=== PATIENT | female | born 1955 | race Caucasian/White ===

== ENCOUNTER → 2016-08-31 | Outpatient (CLI) | payer BC ==
[~2016-08-31] MED LIST: DIVA500T59 PO; FLUO20CA35 PO; SITA1TAB27 PO
== END | disposition home or self-care (01) ==
LOC: C.PAPS 09:49
PROVIDERS: ATTEND Obstetrics & Gynecology
DX: Z01.419 Encounter for gynecological examination (general) (routine) without abnormal findings (principal)

== ENCOUNTER → 2017-04-21 | Outpatient (CLI) | payer BC ==
--- NOTE | 2017-04-21 13:56 | DIAGNOSTIC IMAGING REPORT ---
RIGHT FOOT MIN 3 VIEWS ROUTINE CLINICAL HISTORY: 62 years-old Female presenting with RIGHT FOOT PAIN, SWELLING Right. TECHNIQUE: Frontal, oblique, and lateral views of the right foot were obtained. COMPARISON: None. FINDINGS: No acute fracture or malalignment. Prominent bone spur at the inferior calcaneus. No other degenerative changes evident. Mild soft tissue swelling over the dorsum of the foot may be present. IMPRESSION: No acute osseous abnormality. Enthesophyte at the origin of the plantar fascia. Electronically signed by: Jeff Cesar M.D. 04/21/2017 1:54 PM Dictated Date/Time: 04/21/2017 1:53 PM
== END | disposition home or self-care (01) ==
LOC: C.RAD1850 13:02
DX: M77.31 Calcaneal spur, right foot (principal)

== ENCOUNTER → 2017-04-27 | Outpatient (CLI) | payer BC ==
[~2017-04-27] MED LIST changes: +GADAVIST IV PRN
--- NOTE | 2017-04-27 09:17 | DIAGNOSTIC IMAGING REPORT ---
RIGHT FOREFOOT MRI WITH AND WITHOUT INTRAVENOUS CONTRAST HISTORY: RIGHT FOOT/ANKLE, ATTN:PROXIMAL 4TH metatarsal TECHNIQUE: Multiplanar multisequence MRI of the right forefoot was performed both before and after the intravenous administration of contrast. COMPARISON STUDY: Right foot 04/21/2017. FINDINGS: Nonspecific marrow edema seen within the bases of the third and fourth metatarsals as well as the distal lateral cuneiforms bone. No definite cortical destruction or bony erosions. No fractures are identified at this time. There is surrounding soft tissue edema and enhancement at this location. There is also mild enhancement of the marrow at the site of edema. The Lisfranc joint appears well aligned. There is also mild patchy areas of marrow edema within the medial and intermediate cuneiforms bones with associated enhancement. No definite fluid collections or soft tissue masses. Dorsal subcutaneous edema. IMPRESSION: 1. Nonspecific marrow edema seen at the bases of the third and fourth metatarsals as well as the cuneiform bones with associated enhancement. No definite fractures identified. Therefore, this favors stress-related changes. Infectious process suggests an osteitis could also have a similar appearance but is considered less likely. Clinical correlation recommended. 2. Dorsal subcutaneous edema. Electronically signed by: Pasha Hogue M.D. 04/27/2017 9:16 AM Dictated Date/Time: 04/27/2017 9:06 AM
== END | disposition home or self-care (01) ==
LOC: C.MRIBC 04-26 12:58
DX: M79.671 Pain in right foot (principal); R60.9 Edema, unspecified

== ENCOUNTER → 2017-07-05 | Outpatient (CLI) | payer BC ==
[~2017-07-05] MED LIST changes: -GADAVIST IV PRN
--- NOTE | 2017-07-06 14:26 | MAMMOGRAPHY REPORT ---
BILATERAL DIGITAL SCREENING MAMMOGRAM TOMOSYNTHESIS WITH CAD: 07/05/2017 CLINICAL HISTORY: Routine screening. Patient has no complaints. TECHNIQUE: Breast tomosynthesis in addition to standard 2D mammography was performed. Current study was also evaluated with a Computer Aided Detection (CAD) system. COMPARISON: Comparison is made to exams dated: 06/29/2016 mammogram - [facility] a nd 12/29/2007. BREAST COMPOSITION: There are scattered areas of fibroglandular density in both breasts. FINDINGS: No suspicious mass, architectural distortion or cluster of microcalcifications is seen. IMPRESSION: ACR BI-RADS CATEGORY 1: NEGATIVE There is no mammographic evidence of malignancy. A 1 year screening mammogram is recommended. The pa tient will receive written notification of the results. Approximately 10% of breast cancers are not detected with mammography. A negative mammographic report should not delay biopsy if a clinically suggestive mass is present. Emi Agee M.D. ay/penrad:07/05/2017 15:36:32 [employer]: Adilia MCINTYRE(Gina)([place]), [facility] letter sent: Normal 1/2 BI-RADS Code: ACR BI-RADS Category 1: Negative
== END | disposition home or self-care (01) ==
LOC: C.MAMM 08:55
DX: Z12.31 Encounter for screening mammogram for malignant neoplasm of breast (principal)

== ENCOUNTER → 2017-09-06 | Outpatient (CLI) | payer OTHER | END | disposition home or self-care (01) | LOC: C.PAPS 13:50 | PROVIDERS: ATTEND Obstetrics & Gynecology | DX: Z01.419 Encounter for gynecological examination (general) (routine) without abnormal findings (principal) ==